=== PATIENT | male | born 1995 | race Two or more races ===

== ENCOUNTER 2018-05-16 18:44 | Emergency (ER) | payer OTHER ==
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
[2018-05-16 19:08] VITALS: BP 116/61
== END 2018-05-16 19:55 | disposition home or self-care (01) ==
LOC: EDUNIT#
DX: R56.9 Unspecified convulsions (principal); Z88.0 Allergy status to penicillin; Z88.2 Allergy status to sulfonamides

== ENCOUNTER → 2018-05-27 | Outpatient (CLI) | payer OTHER ==
--- NOTE | 2018-05-28 14:32 | CPEEG ---
DATE OF STUDY: 05/27/2018 INTERPRETATION: Normal EEG during wakefulness and sleep. There were no potentially epileptogenic ab normalities present in the awake or sleep recordings. REPORT: This EEG contains 10 Hz alpha activity over the posterior head regions. No abnormal activat ion at rest or during photic stimulation or hyperventilation. The patient became drowsy and intermit tently fell asleep during the study. There was no abnormal activation during drowsiness, sleep or du ring times of arousal. /[id number]/MODL
== END ==
LOC: FCPNEURO 10:57
PROVIDERS: ATTEND Psychiatry & Neurology Neurology
DX: R40.20 Unspecified coma (principal)

== ENCOUNTER → 2018-05-27 | Outpatient (CLI) | payer OTHER | LOC: FIMAGING 17:31 | PROVIDERS: ATTEND Physician Assistant Medical | DX: R40.20 Unspecified coma (principal) ==